=== PATIENT | female | born 1940 | race Two or more races ===

== ENCOUNTER 2024-06-01 09:08 | Inpatient (IN) | payer OTHER, MEDICAID ==
[~2024-06-01] VITALS: Ht 157.5 cm; Wt 125.0 kg
--- NOTE | 2024-06-01 09:31 | ECG ---
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
--- NOTE | 2024-06-01 09:38 | ED.PDOC ---
Altered Mental Status HPI Comments 84 year old female brought in by EMS presents to the ED with a chief complaint of hypoglycemia onset today (06/01/24). Per EMS, patient was found weak, not able to move, not responding properly, 911 was called. Upon EMS arrival patient's BS was 40, D10 was given, BS improved to 62. Patient was able to be response. Upon ED arrival patient states she is currently experiencing shortness of breath and noticed LT arm is shaking. Upon ED arrival BS was 64. PMHx DM. Denies chest pain, nausea, vomiting, diarrhea, abdominal pain, dizziness, headache. No other symptoms or modifying factors present at this time. Chief Complaint: Hypoglycemia Time Seen by MD: 09:15 Primary Care Provider: UNKNOWN Reviewed Notes: Medications, Allergies Allergies: Coded Allergies: NO KNOWN ALLERGIES (Unverified , 06/01/24) Information Source: Patient, Emergency Med Personnel Mode of Arrival: EMS Severity: Moderate Timing: Hours Duration: Since onset Prehospital treatment: Other (D10) Quality: Decreased Alertness, Change in Behavior Recent: None History of: Diabetes, Hypoglycemia Past Medical History PAST MEDICAL HISTORY: DM Surgical History: Denies all surgeries WHARF OPERATOR History: No Pertinent WHARF OPERATOR History Family History Family History: Reviewed,noncontributory to illness, No family hx of Cancer, No family hx of DM, No family hx of Heart aria, No family hx of HTN, No family hx ofKidney aria, No family hx of Liver aria, No family hx of Lung aria, No family hx of Stroke Social History Smoker: Non-Smoker Alcohol: Denies ETOH Use Drugs: Denies Drug Use Lives In: Home Constitutional: reports: weakness; denies: chills, diaphoresis, fatigue, fever, malaise, sweats, others EENTM: denies: blurred vision, double vision, ear bleeding, ear discharge, ear drainage, ear pain, ear ringing, eye pain, eye redness, hearing loss, mouth pain, mouth swelling, nasal discharge, nose bleeding, nose congestion, nose pain, photophobia, tearing, throat pain, throat swelling, voice changes, others Respiratory: reports: shortness of breath; denies: cough, hemoptysis, orthopnea, SOB at rest, SOB with excertion, stridor, wheezing, others Cardiovascular: denies: chest pain, dizzy spells, diaphoresis, Dyspnea on exertion, edema, irregular heart beat, left arm pain, lightheadedness, palpitations, PND, syncope, others Gastrointestinal: denies: abdomen distended, abdominal pain, blood streaked bowels, constipated, diarrhea, dysphagia, difficulty swallowing, hematemesis, melena, nausea, poor appetite, poor fluid intake, rectal bleeding, rectal pain, vomiting, others Genitourinary: denies: abnormal vagina bleeding, burning, dyspareunia, dysuria, flank pain, frequency, hematuria, incontinence, pain, , vagina discharge, urgency, others Neurological: reports: tremors, weakness; denies: dizziness, fainting, headache, left sided numbness, left sided weakness, numbness, paresthesia, pre- existing deficit, right sided numbness, right sided weakness, seizure, speech problems, tingling, others Musculoskeletal: denies: back pain, gout, joint pain, joint swelling, muscle pain, muscle stiffness, neck pain, others Integumetry: denies: bruises, change in color, change in hair/nails, dryness, laceration, lesions, lumps, rash, wounds, others Allergic/Immunocompromised: denies: Difficulty Healing, Frequent Infections, Hives, Itching, others Hematologic/Lymphatic: denies: anemia, blood clots, easy bleeding, easy bruising, swollen glands, others Endocrine: denies: excessive hunger, excessive sweating, excessive thirst, excessive urination, flushing, intolerance to cold, intolerance to heat, unexplained weight gain, unexplained weight loss, others Psychiatric: denies: anxiety, bipolar disorder, depression, hopeless, panic disorder, schizophrenia, sleepless, suicidal, others All Other Systems: Reviewed and Negative Physical Exam General Appearance: Moderate Distress, Normal HEENT: Normal ENT Inspection, Pharynx Normal, TMs Normal Neck: Full Range of Motion, Non-Tender, Normal, Normal Inspection Respiratory: Chest Non-Tender, Lungs Clear, No Accessory Muscle Use, No Respiratory Distress, Normal Breath Sounds Cardiovascular: Bradycardia, No Edema, No JVD, No Murmur, No Gallop, Normal Peripheral Pulses Breast Exam: Deferred Gastrointestinal: No Organomegaly, Non Tender, No Pulsatile Mass, Normal Bowel Sounds, Soft Genitalia: Deferred Pelvic: Deferred Rectal: Deferred Extremities: No calf tenderness, Normal capillary refill, Non-tender, No pedal edema Musculoskeletal : Apperance: Normal Neurologic: Alert, grain operator II-XII nml as Tested, No Motor Deficits, Normal Affect, Normal Mood, No Sensory Deficits Cerebellar Function: NOT DONE Reflexes: NOT DONE Skin: Dry, Normal Color, Warm Peripheral Pulses: 3+ Radial (R), 3+ Radial (L) Lymphatic: No Adenopathy Was a procedure done? Was a procedure done?: No Differential Diagnosis (ALOC) Differential Diagnosis: Hypoglycemia, Encephalopathy, Sepsis X-Ray, Labs, Meds, VS Vital Signs Date Time Temp Pulse Resp B/P (MAP) Pulse Ox O2 Delivery O2 Flow Rate FiO2 06/01/24 10:22 Nasal Cannula* 2 28 06/01/24 10:01 44 19 191/70 (110) 98 06/01/24 09:42 91.0 91.0 06/01/24 09:33 50 14 174/53 (93) 91 06/01/24 09:17 43 18 138/84 (102) 98 06/01/24 09:11 46 Lab Test 06/01/24 10:09 Range/Units White Blood Count 6.7 4.4-10.8 10^3/uL Red Blood Count 4.29 4.0-5.20 10^6/uL Hemoglobin 12.5 12.2-16.2 g/dL Hematocrit 39.5 36.0-46.0 % Mean Corpuscular Volume 92.2 80.0-100.0 fL Mean Corpuscular Hemoglobin 29.1 28.0-32.0 pg Mean Corpuscular Hemoglobin Concent 31.5 L 32.0-36.0 g/dL Red Cell Distribution Width 15.5 H 11.8-14.3 % Platelet Count 221 140-450 10^3/uL Mean Platelet Volume 7.2 6.9-10.8 fL Neutrophils (%) (Auto) 87.7 H 37.0-80.0 % Lymphocytes (%) (Auto) 7.4 L 10.0-50.0 % Monocytes (%) (Auto) 4.3 0.0-12.0 % Eosinophils (%) (Auto) 0.3 0.0-7.0 % Basophils (%) (Auto) 0.3 0.0-2.0 % Neutrophils # (Auto) 5.9 1.6-8.6 10 ^3/uL Lymphocytes # (Auto) 0.5 0.4-5.4 10 ^3/uL Monocytes # (Auto) 0.3 0-1.3 10 ^3/uL Eosinophils # (Auto) 0 0-0.8 10 ^3/uL Basophils # (Auto) 0 0-0.2 10 ^3/uL Nucleated Red Blood Cells 0.0 % Sodium Level 142 136-145 mmol/L Potassium Level 4.4 3.5-5.1 mmol/L Chloride Level 109 H 98-107 mmol/L Carbon Dioxide Level 22 20-31 mmol/L Anion Gap 11 5-15 Blood Urea Nitrogen 34 H 9-23 mg/dL Creatinine 1.93 H 0.550-1.02 mg/dL Glomerular Filtration Rate Calc 25 >90 mL/min BUN/Creatinine Ratio 17.6 10.0-20.0 Serum Glucose 108 H 74-106 mg/dL Calcium Level 9.4 8.7-10.4 mg/dL Troponin I High Sensitivity 13 </=34 ng/L Current Medications Medications (Trade) Dose Ordered Sig/Erika Route Start Time Stop Time Status Last Admin Dextrose 1,000 ml @ 75 mls/hr [id number] ONCE IV 06/01/24 09:30 06/01/24 22:49 06/01/24 10:02 [place] [id number] Ph: [phone] DIAGNOSTIC IMAGING Diagnostic Imaging Report : [id number] Signed PATIENT: ORLANDO HUBBARD ACCT: [id number] UNIT: [id number] : 1940 LOC: ER ROOM / BED: / AGE / SEX: 84 / F ADM STATUS: REG ER SERVICE 1 ORDERING PHYSICIAN: EJ JONES MD PROCEDURE(s): CXRP - CHEST PORTABLE REASON: sob ORDER NUMBER(s): [id number], ACCESSION NUMBER(s): [id number] CHEST RADIOGRAPH Indication: sob Technique: Single frontal view of the chest was obtained Comparison: None FINDINGS: Lines and Tubes: None Lungs: Pulmonary vascular congestion. Pleura: No effusion. No pneumothorax. Cardiomediastinal contours: Cardiomegaly. Bones: No acute osseous abnormality. Bilateral AC joint space narrowing and osteophyte formation. IMPRESSION: 1. Pulmonary vascular congestion. ATED BY: MERRICK COSTELLO MD DICTATED DATE/TIME: 06/01/24 100 SIGNED BY: MERRICK COSTELLO MD SIGNED DATE/TIME: 06/01/24 100 CC: Patient slow to respond. Better after giving glucose. Chest x-ray does show congestion. Vitals stable. EKG does show chronic changes. Blood pressure elevated. She is bradycardic pain Possibly from atenolol. Placed on oxygen. Placed on D10. Waiting for family. Continue cardiac monitoring. Time of 1ST Reevaluation: 09:45 Reevaluation 1ST: Unchanged Patient Education/Counseling: Diagnosis, Treatment, Prognosis Family Education/Counseling: No Family Present Additional Information The following tests were ordered, and results were reviewed by me: EKG, TROP, CBC, XY CHEST, UA, BMP, URINE BACTERIAL CULTURE Additional Information was gathered from interviewing the following independent historians: EMS I reviewed and agreed with the following test results read by other providers: XY CHEST I discussed treatment and results with medical personnel and: Patient Comprehensive systems review obtained and negative except for what is stated in the HPI. Departure 1 Departure Time of Disposition: 11:57 Impression: Primary Impression: Metabolic encephalopathy Additional Impressions: Hypertensive urgency Hypoglycemia Disposition: ADMITTED INPATIENT Admit to: Med Surg Condition: Guarded Critical Care Note Critical Care Time?: Yes (90 min-critical care time only) Critical care comment: Started glucose Stability Stability form required: No Heart Score Heart Score: Heart Score Response (Comments) Value History Slightly Suspicious 0 EKG Normal 0 Age >65 2 Risk Factors >3 or Hx ASHD 2 Troponin Normal limit 0 Total 4 I personally scribed for EJ JONES MD ([email or web address]) on 06/01/24 at 09:38. Electronically submitted by Josefa Renee ([email or web address]). I personally scribed for EJ JONES MD ([email or web address]) on 06/01/24 at 10:37. Electronically submitted by Josefa Renee ([email or web address]). EJ JONES MD Jun 01, 2024 09:38
[2024-06-01] MEDS: DEXTROSE 10% 1,000 ML IV ONE ×3 (10:02→18:23)
--- NOTE | 2024-06-01 10:10 | DVH ---
CHEST RADIOGRAPH Indication: sob Technique: Single frontal view of the chest was obtained Comparison: None FINDINGS: Lines and Tubes: None Lungs: Pulmonary vascular congestion. Pleura: No effusion. No pneumothorax. Cardiomediastinal contours: Cardiomegaly. Bones: No acute osseous abnormality. Bilateral AC joint space narrowing and osteophyte formation. IMPRESSION: 1. Pulmonary vascular congestion.
[2024-06-01 10:20] LABS: Basophils # (auto) 0 10 ^3/uL (0-0.2); Basophils % (auto) 0.3 % (0.0-2.0); Eosinophils # (auto) 0 10 ^3/uL (0-0.8); Eosinophils % (auto) 0.3 % (0.0-7.0); Hematocrit 39.5 % (36.0-46.0); Hemoglobin 12.5 g/dL (12.2-16.2); Lymphocytes # (auto) 0.5 10 ^3/uL (0.4-5.4); Lymphocytes % (auto) 7.4 % (10.0-50.0); Mean Corpuscular Hemoglobin 29.1 pg (28.0-32.0); Mean Corpuscular Hgb Conc. 31.5 g/dL (32.0-36.0); Mean Corpuscular Volume 92.2 fL (80.0-100.0); Monocytes # (auto) 0.3 10 ^3/uL (0-1.3); Monocytes % (auto) 4.3 % (0.0-12.0); Neutrophils # (auto) 5.9 10 ^3/uL (1.6-8.6); Neutrophils % (auto) 87.7 % (37.0-80.0); Platelet Count (auto) 221 10^3/uL (140-450); Red Blood Cells 4.29 10^6/uL (4.0-5.20); Red Cell Distribution Width 15.5 % (11.8-14.3); White Blood Cell 6.7 10^3/uL (4.4-10.8)
[2024-06-01 10:43] LABS: Anion Gap 11 (5-15); Carbon Dioxide 22 mmol/L (20-31); Potassium 4.4 mmol/L (3.5-5.1); Sodium 142 mmol/L (136-145)
[2024-06-01 10:44] LABS: Calcium 9.4 mg/dL (8.7-10.4); Chloride 109 mmol/L (98-107)
[2024-06-01 10:49] LABS: BUN/Creatinine Ratio 17.6 (10.0-20.0)
[2024-06-01 10:59] LABS: Blood Urea Nitrogen 34 mg/dL (9-23); Glucose 108 mg/dL (74-106)
[2024-06-01 14:13] LABS: Urine Bacteria FEW /hpf (None Seen); Urine Blood TRACE /uL (Negative); Urine Clarity Clear (Clear); Urine Color Light-Yellow (Yellow); Urine Protein, UAD TRACE (Negative); Urine Specific Gravity 1.009 (1.001-1.035); Urine Squamous Epithelial Cell FEW /hpf (<5); Urine Urobilinogen Normal (Negative); Urine WBC 19 /HPF (0-5)
[2024-06-01] MEDS ORDERED: ATEN50TA PO (14:29)
[2024-06-01] MEDS ORDERED: OXYB5TAB14 PO (14:29)
[2024-06-01] MEDS ORDERED: DOCUSATE SOD 100 MG CAP PO PRN (14:30)
[2024-06-01] MEDS ORDERED: DEXTROSE (50%) 50ML SYRG IV PRN ×3 (14:30→22:00)
[2024-06-01] MEDS ORDERED: ONDANSETRON HCL 4 MG/2 ML VIAL IV PRN (14:30)
[2024-06-01] MEDS ORDERED: HYDROcodone-ACET 5/325MG TAB PO PRN (14:30)
--- NOTE | 2024-06-01 14:55 | DVHHP2 ---
History of Present Illness Reason for Visit: Hypoglycemia History of Present Illness Humaira Coronado is an 84-year-old female with past medical history of diabetes, hypertension, neuropathy, and over active bladder, who was brought in for hypoglycemia. Patient states she lives alone. She has 2 caregivers that check on her twice a day, and her daughter lives close. According to ER, the caregiver found her this morning weak and not responding well. When EMS arrived her blood sugar was in the 40's. She was given dextrose and became more responsive. Once in the ER her blood sugar was in the 60's and she was hypothermic. D10 was started and a bear hugger blanket was placed. 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 Endocrine: Diabetes Past Surgical History: Appendectomy, Hysterectomy, Other (back, eye, and bladder), Total knee replacement (bilateral) Smoke: No ALCOHOL: none Drugs: None Lives: Alone Domestic Violence: Neg Review of Systems Constitutional: No: Fever, Chills, Sweats, Weakness, Malaise, Other Eyes: No: Pain, Vision change, Conjunctivae inflammation, Eyelid inflammation, Other, Redness ENT: No: Ear pain, Ear discharge, Nose pain, Nose discharge, Nose congestion, Mouth pain, Mouth swelling, Throat pain, Throat swelling, Other Respiratory: No: Cough, Dry, Shortness of breath, SOB with excertion, Wheezing, Hemoptysis, Pleuritic Pain, Sputum, Wheezing, Other Cardiovascular: No: Chest Pain, Palpitations, Orthopnea, Paroxysmal Noc. Dyspnea, Edema, Lt Headedness, Other Gastrointestinal: No: Nausea, Vomiting, Abdominal Pain, Diarrhea, Constipation, Melena, Hematochezia, Other Genitourinary: No Dysuria, No Frequency, No Incontinence, No Hematuria, No Retention, No Other Musculoskeletal: No: other, neck pain, shoulder pain, arm pain, back pain, hand pain, leg pain, foot pain Skin: No: Rash, Lesions, Jaundice, Bruising, Other Neurological: Weakness, Incoordination, Confusion, Other (Hypoglycemic); No: Numbness, Change in speech, Seizures Allergies: Coded Allergies: NO KNOWN ALLERGIES (Unverified , 06/01/24) Exam Vital Signs Vital Signs Date Time Temp Pulse Resp B/P (MAP) Pulse Ox O2 Delivery O2 Flow Rate FiO2 06/01/24 12:01 97.0 48 15 169/50 (89) 99 97.0 06/01/24 10:22 Nasal Cannula* 2 28 General Appearance: Alert, Oriented X3, Cooperative, mild distress HEENT: Atraumatic, PERRLA Respiratory: Clear to auscultation, Normal air movement Cardiovascular: Normal S1, Normal S2, No murmurs, Other (SB) Abdominal: Normal bowel sounds, Soft, No tenderness, No hepatospenomegaly Extremities: No clubbing, No cyanosis, No edema, Normal pulses, No tenderness/swelling Skin: No rashes, No breakdown, No significant lesion Neuro: Normal gait, Normal speech, Strength at 5/5 X4 ext Psych/Mental Status: Mental status NL, Mood NL Labs/Xrays Labs Test 06/01/24 13:45 06/01/24 12:32 06/01/24 10:09 Range/Units Urine Color Light-yellow Yellow Urine Clarity Clear Clear Urine pH 6.0 5.0-9.0 Urine Specific [place] 1.009 1.001-1.035 Urine Protein Trace H Negative Urine Ketones Negative Negative Urine Blood Trace H Negative /uL Urine Nitrite 2+ H Negative Urine Bilirubin Negative Negative Urine Urobilinogen Normal Negative mg/dL Urine Leukocyte Esterase 2+ Negative /uL Urine RBC 1 0 - 4 /hpf Urine Microscopic WBC 19 H 0-5 /HPF Urine Squamous Epithelial Cells Few <5 /hpf Urine Bacteria Few H None Seen /hpf Urine Glucose Normal Normal mg/dL POC Glucose 156 H 70-106 mg/dl White Blood Count 6.7 4.4-10.8 10^3/uL Red Blood Count 4.29 4.0-5.20 10^6/uL Hemoglobin 12.5 12.2-16.2 g/dL Hematocrit 39.5 36.0-46.0 % Mean Corpuscular Volume 92.2 80.0-100.0 fL Mean Corpuscular Hemoglobin 29.1 28.0-32.0 pg Mean Corpuscular Hemoglobin Concent 31.5 L 32.0-36.0 g/dL Red Cell Distribution Width 15.5 H 11.8-14.3 % Platelet Count 221 140-450 10^3/uL Mean Platelet Volume 7.2 6.9-10.8 fL Neutrophils (%) (Auto) 87.7 H 37.0-80.0 % Lymphocytes (%) (Auto) 7.4 L 10.0-50.0 % Monocytes (%) (Auto) 4.3 0.0-12.0 % Eosinophils (%) (Auto) 0.3 0.0-7.0 % Basophils (%) (Auto) 0.3 0.0-2.0 % Neutrophils # (Auto) 5.9 1.6-8.6 10 ^3/uL Lymphocytes # (Auto) 0.5 0.4-5.4 10 ^3/uL Monocytes # (Auto) 0.3 0-1.3 10 ^3/uL Eosinophils # (Auto) 0 0-0.8 10 ^3/uL Basophils # (Auto) 0 0-0.2 10 ^3/uL Nucleated Red Blood Cells 0.0 % Sodium Level 142 136-145 mmol/L Potassium Level 4.4 3.5-5.1 mmol/L Chloride Level 109 H 98-107 mmol/L Carbon Dioxide Level 22 20-31 mmol/L Anion Gap 11 5-15 Blood Urea Nitrogen 34 H 9-23 mg/dL Creatinine 1.93 H 0.550-1.02 mg/dL Glomerular Filtration Rate Calc 25 >90 mL/min BUN/Creatinine Ratio 17.6 10.0-20.0 Serum Glucose 108 H 74-106 mg/dL Calcium Level 9.4 8.7-10.4 mg/dL Troponin I High Sensitivity 13 </=34 ng/L CHEST RADIOGRAPH FINDINGS: Lines and Tubes: None Lungs: Pulmonary vascular congestion. Pleura: No effusion. No pneumothorax. Cardiomediastinal contours: Cardiomegaly. Bones: No acute osseous abnormality. Bilateral AC joint space narrowing and osteophyte formation. IMPRESSION: 1. Pulmonary vascular congestion. 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 Procedure Category Date Status Time Admit ADMIT 06/01/24 Verified 14:22 Code Status CODE 06/01/24 Verified 14:22 2 Gm Sodium Diet DIET 06/01/24 Verified Dinner Sodium Chloride Lock PHA 06/01/24 Verified (Saline Lock Ns) 22:00 Hydrocodone-Acet PHA 06/01/24 Verified 5/325mg Tab ([place] 14:30 Ondansetron Hcl PHA 06/01/24 Verified (Zofran) 14:30 Docusate Sodium PHA 06/01/24 Verified Capsule (Colace 14:30 Complete Blood Count LAB 06/02/24 Verified 04:00 Comprehensive LAB 06/02/24 Verified Metabolic Panel 04:00 Condition: Serious ELVIN 06/01/24 Verified 14:22 Acetaminophen Tablet PHA 06/01/24 Verified (Tylenol Tablet) 14:30 Glucose Blood PHA 06/01/24 Verified (Accu-Chek Comfort 17:00 Bedtime Insulin Scale PHA 06/01/24 Verified 22:00 Moderate Insulin Ss PHA 06/01/24 Verified 17:00 Dextrose 50% Syringe PHA 06/01/24 Verified 14:30 Insulin Lantus PHA 06/02/24 Verified (Glargine) (Lantus) 07:00 Date of Service: Jun 01, 2024 Billing Provider: DRAKE DIXON Common Visit Codes: [id number] INP/OBS CARE (MOD) DRAKE DIXON Jun 01, 2024 14:55
[2024-06-01] MEDS: ACCU-CHEK COMFORT CURVE STRIP VI SCH ×2 (15:50→22:00)
[2024-06-01 17:00] VITALS: BP 174/46; PULSE 60; RESP 18; TEMP 98.1; O2SAT 100
[2024-06-01] MEDS ORDERED: ACCU-CHEK COMFORT CURVE STRIP VI SCH (17:00)
[2024-06-01 17:08] VITALS: BP 174/46; PULSE 60; RESP 18; TEMP 98.1; O2SAT 100
[2024-06-01] MEDS: InsuLIN REG 1unit/0.01ml Soln (100units/ml) SC SCH ×2 (18:00→22:38)
[2024-06-01] MEDS ORDERED: NIFE90TA75 PO (18:06)
[2024-06-01] MEDS ORDERED: HYDR50TA47 PO (18:06)
[2024-06-01] MEDS: NIFEdipine ER 30 MG TAB PO ONE (18:30)
[2024-06-01] MEDS: hydrALAZINE HCL 25 MG TAB PO ONE (18:31)
[2024-06-01 20:00] VITALS: PULSE 56; RESP 20; O2SAT 98
[2024-06-01 21:00] VITALS: BP 123/41; PULSE 56; RESP 20; TEMP 98.1; O2SAT 98
[2024-06-01] MEDS ORDERED: InsuLIN REG 1unit/0.01ml Soln (100units/ml) SC SCH (22:00)
[2024-06-01] MEDS: hydrALAZINE HCL 25 MG TAB PO SCH (22:00)
[2024-06-01] MEDS: SODIUM CHLOR 0.9% PF (SALINE LOCK) 10ML VIAL/SYR IV SCH (22:31)
[2024-06-02] VITALS (7 sets, daily range): BP systolic 103–160; BP diastolic 32–65; PULSE 57–96; RESP 15–20; TEMP 97.8–99; O2SAT 90–98
[2024-06-02 06:00] LABS: Basophils # (auto) 0 10 ^3/uL (0-0.2); Basophils % (auto) 0.5 % (0.0-2.0); Eosinophils # (auto) 0.2 10 ^3/uL (0-0.8); Eosinophils % (auto) 2.1 % (0.0-7.0); Hematocrit 33.2 % (36.0-46.0); Hemoglobin 10.5 g/dL (12.2-16.2); Lymphocytes % (auto) 13.7 % (10.0-50.0); Mean Corpuscular Hemoglobin 28.8 pg (28.0-32.0); Mean Corpuscular Hgb Conc. 31.5 g/dL (32.0-36.0); Mean Corpuscular Volume 91.4 fL (80.0-100.0); Monocytes # (auto) 0.6 10 ^3/uL (0-1.3); Monocytes % (auto) 7.6 % (0.0-12.0); Neutrophils # (auto) 5.6 10 ^3/uL (1.6-8.6); Neutrophils % (auto) 76.1 % (37.0-80.0); Platelet Count (auto) 205 10^3/uL (140-450); Red Blood Cells 3.63 10^6/uL (4.0-5.20); Red Cell Distribution Width 15.5 % (11.8-14.3); White Blood Cell 7.3 10^3/uL (4.4-10.8)
[2024-06-02 06:34] LABS: Alanine Aminotransferase 12 U/L (7-40); Albumin 3.6 g/dL (3.2-4.8); Alkaline Phosphatase 90 U/L (46-116); Anion Gap 10 (5-15); Aspartate Aminotransferase 15 U/L (13-40); BUN/Creatinine Ratio 20.9 (10.0-20.0); Calcium 9.1 mg/dL (8.7-10.4); Carbon Dioxide 24 mmol/L (20-31); Glucose 84 mg/dL (74-106); Potassium 4.3 mmol/L (3.5-5.1); Sodium 143 mmol/L (136-145)
[2024-06-02 06:35] LABS: Bilirubin, Total 0.4 mg/dL (0.2-1.0)
[2024-06-02] MEDS: INSULIN LANTUS (GLARGINE) 1 /0.01ml (100units/ml) SC SCH (06:38)
[2024-06-02 06:39] LABS: Blood Urea Nitrogen 39 mg/dL (9-23); Chloride 109 mmol/L (98-107)
[2024-06-02] MEDS ORDERED: cefTRIAXone 1GM/50ML D5W 50 ML IV SCH (09:00)
[2024-06-02] MEDS: ACETAMINOPHEN 325 MG TAB PO PRN (09:17)
[2024-06-02] MEDS: OXYBUTYNIN CHL 5 MG TAB PO SCH (09:18)
[2024-06-02] MEDS: NIFEdipine ER 30 MG TAB PO SCH (09:19)
--- NOTE | 2024-06-02 10:00 | DVHPNRES ---
Progress Note Date Seen: Jun 02, 2024 Resident Creating Document: CURTIS ALLEN RESIDENT Has the PT tested + for MRSA If YES, has PT been informed?: No Medical Necessity Reason Pt with a Central, PICC or Fol: No The following are medically ne: Crystal Catheter Reason for crystal catheter: Strict I&O Subjective Review of Systems 84-year-old female patient with past medical history of diabetes, hypertension, peripheral neuropathy, neurogenic bladder, who was brought to the emergency department with a chief complaint of altered level of consciousness likely cause by an episode of hypoglycemia, patient was found to be disoriented, and blood glucose level were found to be in the 40s, she said she forgot to eat after taking the insulin. Today patient was examined at bedside she reports improvement, she said she forgot to eat after taking the insulin. Was given dextrose, she was given medication for the neuropathic pain, gabapentin 300 mg p.o. b.i.d. and also ceftriaxone for a positive urinalysis, we will continue monitoring the blood pressure, she is currently on losartan 25 mg p.o. daily and nifedipine 90. Lower extremity DVT ultrasound was negative. Review of systems: Constitutional: No: Fever, Chills, Sweats, Weakness, Malaise, Other Eyes: No: Pain, Vision change, Conjunctivae inflammation, Eyelid inflammation, Other, Redness ENT: No: Ear pain, Ear discharge, Nose pain, Nose discharge, Nose congestion, Mouth pain, Mouth swelling, Throat pain, Throat swelling, Other Respiratory: No Wheezing, Hemoptysis, Pleuritic Pain, Sputum, Wheezing, Other Cardiovascular: No: Chest Pain, Palpitations, Orthopnea, Paroxysmal Noc. Dyspnea, Edema Gastrointestinal: No: Nausea, Vomiting, Abdominal Pain, Diarrhea, Constipation, Melena, Hematochezia, Other Musculoskeletal: No: other, neck pain, shoulder pain, arm pain, back pain, hand pain, leg pain, foot pain Neurological:; No: Weakness, Numbness, Incoordination, Change in speech, Confusion, Seizures Patient reports: Feels better Changes from previous H/P or p: Changes Objective vital signs Vital Sign Date Time Temp Pulse Resp B/P (MAP) Pulse Ox O2 Delivery O2 Flow Rate FiO2 06/02/24 09:19 160/63 06/02/24 05:00 98.1 62 20 96 98.1 06/01/24 20:00 Nasal Cannula* 2 28 Total Intake and Output 06/01/24 06/01/24 06/02/24 15:00 23:00 07:00 Intake Total 300 ml 280 ml 0 ml Output Total 1600 ml Balance 300 ml 280 ml -1600 ml medications Current Medications Medications Dose Ordered Sig/Erika Route Start Time Stop Time Status Last Admin Dose Admin Sodium Chloride 10 ml Q8HR IV 06/01/24 22:00 06/02/24 06:36 10 ML Acetaminophen/ Hydrocodone Bitart 1 tab Q4HP PRN PO 06/01/24 14:30 Ondansetron HCl 4 mg Q4HP PRN IV 06/01/24 14:30 Docusate Sodium 100 mg BIDPRN PRN PO 06/01/24 14:30 Acetaminophen 650 mg Q6HP PRN PO 06/01/24 14:30 06/02/24 09:17 650 MG Diagnostic Test (Pha) 1 strip ACHS 06/01/24 17:00 Cancel Insulin Glargine 10 units QAM SC 06/02/24 07:00 Oxybutynin Chloride 5 mg DAILY PO 06/02/24 10:00 06/02/24 09:18 5 MG Hydralazine HCl 50 mg TID PO 06/01/24 22:00 Nifedipine 90 mg DAILY PO 06/02/24 10:00 06/02/24 09:19 90 MG Diagnostic Test (Pha) 1 strip ACHS 06/01/24 22:00 06/02/24 06:38 1 STRIP Insulin Human Regular ACHS SC 06/01/24 22:00 06/01/24 22:38 2 UNITS Dextrose 50 ml UD PRN IV 06/01/24 22:00 Ceftriaxone Sodium 50 ml @ 100 mls/hr DAILY@09 IV 06/03/24 09:00 Gabapentin 300 mg BID PO 06/02/24 10:00 UNV Examination Examination General Appearance: Alert, Oriented X3, Cooperative, No acute distress Respiratory: Clear to auscultation, Normal air movement Cardiovascular: Regular rate, Normal S1, Normal S2 Abdominal: Normal bowel sounds Extremities: No cyanosis, No edema, Normal pulses, No tenderness/swelling Skin: No rashes, No breakdown Neuro: Normal gait, Normal speech, Strength at 5/5 X4 ext, Normal tone, Sensation intact, Cranial nerves 3-12 NL, Reflexes 2+ laboratory and microbiology Laboratory Tests 06/02/24 05:24 Test 06/02/24 05:24 Range/Units Serum Glucose 84 74-106 mg/dL Microbiology Date/Time Source Procedure Growth Status 06/01/24 13:45 Urine - [place] Urine Culture - Preliminary Resulted Problem List/Assessment/Plan Problem List/Assessment/Plan Acute metabolic encephalopathy secondary to hypoglycemia Morbid obesity Hypertension Asymptomatic bradycardia Neurogenic bladder secondary to type 2 diabetes Plan: Admit to med surge IV ceftriaxone Gabapentin 300 b.i.d. p.o. Insulin protocol Oxybutynin next Monitoring output Continue gentle diuresis Resume home medication Case discussed with Dr. Potts Goals of care discussed with the patient for 28 minutes Code status: Full code Plan discussed with: Patient My Orders My Orders Orders - CURTIS ALLEN Procedure Category Date Status Time Vitamin B12 LAB 06/02/24 In Process 07:52 Vitamin D, 25-Hydroxy LAB 06/02/24 In Process 07:52 Thyroid Stimulating LAB 06/02/24 In Process Hormone 07:52 Hemoglobin A1c LAB 06/02/24 In Process 07:56 Lipid Panel LAB 06/02/24 In Process 07:56 Ceftriaxone 1gm/50ml PHA 06/03/24 In Process D5w (Rocephin) 09:00 Bilat Lower Dvt US 06/02/24 Logged 09:51 Pt Request For Service PT 06/02/24 Logged 09:51 Gabapentin Capsule PHA 06/02/24 In Process (Neurontin Capsule) 10:00 Gabapentin Capsule PHA 06/02/24 In Process (Neurontin Capsule) 22:00 Losartan Tablet PHA 06/02/24 Logged (Cozaar Tablet) 10:00 Drug Screen LAB 06/02/24 Logged 09:56 Covid19 Antigen [place]ala LAB 06/02/24 Logged Rapid Influenza A&B LAB 06/02/24 Logged 09:56 Date of Service: Jun 02, 2024 Billing Provider: BO POTTS MD Common Visit Codes: [id number] INP/OBS CARE(HIGH) CURTIS ALLEN RESIDENT Jun 02, 2024 10:00 BO POTTS MD Jun 04, 2024 13:48
[2024-06-02 10:14] LABS: Triglycerides 130 mg/dL (< 150)
[2024-06-02 10:15] LABS: LDL Cholesterol 73 mg/dL (< 100)
[2024-06-02 10:16] LABS: Cholesterol 135 mg/dL (< 200)
[2024-06-02 10:27] LABS: HDL Cholesterol 38 mg/dL (40-59)
[2024-06-02] MEDS: LOSARTAN POTASSIUM 25 MG TAB PO ONE (10:28)
[2024-06-02] MEDS: cefTRIAXone 1GM/50ML D5W 50 ML IV ONE (10:28)
[2024-06-02] MEDS: GABAPENTIN 300 MG CAP PO ONE (10:28)
--- NOTE | 2024-06-02 10:48 | DVH ---
BILATERAL LOWER EXTREMITY VENOUS DOPPLER CLINICAL HISTORY: rule out dvt Technique: Duplex Doppler evaluation of the deep venous systems of both lower extremities from the co mmon femoral veins to the popliteal veins including color Doppler and spectral/pulsed waveform analys is was performed. COMPARISON: None FINDINGS: The right and left common femoral, superficial femoral, popliteal, posterior tibial veins and trifur cations appear patent with normal augmentation, phasicity, compressibility and color-flow. IMPRESSION: 1. There is no sonographic evidence for DVT in the lower extremities. HS:Y
[2024-06-02 11:41] LABS: Benzodiazephine Screen, Urine Neg (NEGATIVE)
[2024-06-02 11:50] LABS: Amphetamine Screen, Urine Neg (NEGATIVE); Barbiturate Scree,Urine Neg (NEGATIVE); Cannabinoid Screen, Urine Neg (NEGATIVE); Cocaine Screen, Urine Neg (NEGATIVE); Opiate Scree,Urine Neg (NEGATIVE); Phencyclidine Screen, Urine Neg (NEGATIVE)
[2024-06-02 12:50] LABS: COVID19 ANTIGEN SOFIA FIA NEGATIVE (NEGATIVE); Rapid Influenza A Negative (Negative); Rapid Influenza B Negative (Negative)
[2024-06-02] MEDS: GABAPENTIN 300 MG CAP PO SCH (22:43)
[2024-06-03] VITALS (7 sets, daily range): BP systolic 119–138; BP diastolic 39–50; PULSE 66–76; RESP 17–18; TEMP 97.4–98.2; O2SAT 88–98
[2024-06-03 07:22] LABS: Basophils # (auto) 0.1 10 ^3/uL (0-0.2); Basophils % (auto) 0.8 % (0.0-2.0); Eosinophils # (auto) 0.2 10 ^3/uL (0-0.8); Eosinophils % (auto) 2.1 % (0.0-7.0); Hematocrit 33.9 % (36.0-46.0); Hemoglobin 10.9 g/dL (12.2-16.2); Lymphocytes # (auto) 1.4 10 ^3/uL (0.4-5.4); Lymphocytes % (auto) 18.1 % (10.0-50.0); Mean Corpuscular Hemoglobin 29.2 pg (28.0-32.0); Mean Corpuscular Hgb Conc. 32.2 g/dL (32.0-36.0); Mean Corpuscular Volume 90.7 fL (80.0-100.0); Monocytes # (auto) 0.6 10 ^3/uL (0-1.3); Monocytes % (auto) 8.2 % (0.0-12.0); Neutrophils # (auto) 5.4 10 ^3/uL (1.6-8.6); Neutrophils % (auto) 70.8 % (37.0-80.0); Platelet Count (auto) 198 10^3/uL (140-450); Red Blood Cells 3.73 10^6/uL (4.0-5.20); Red Cell Distribution Width 15.3 % (11.8-14.3); White Blood Cell 7.6 10^3/uL (4.4-10.8)
[2024-06-03 07:29] LABS: Anion Gap 10 (5-15); Carbon Dioxide 24 mmol/L (20-31); Potassium 4.7 mmol/L (3.5-5.1); Sodium 141 mmol/L (136-145)
[2024-06-03 07:30] LABS: Calcium 9.2 mg/dL (8.7-10.4)
[2024-06-03 07:37] LABS: Chloride 107 mmol/L (98-107); Glucose 163 mg/dL (74-106)
[2024-06-03 07:57] LABS: BUN/Creatinine Ratio 22.1 (10.0-20.0)
[2024-06-03 08:04] LABS: Blood Urea Nitrogen 43 mg/dL (9-23)
[2024-06-03] MEDS: cefTRIAXone 1GM/50ML D5W 50 ML IV SCH (10:08)
--- NOTE | 2024-06-03 21:36 | DVHPNRES ---
Progress Note Date Seen: Jun 03, 2024 Resident Creating Document: CURTIS ALLEN RESIDENT Has the PT tested + for MRSA If YES, has PT been informed?: No Medical Necessity Reason Pt with a Central, PICC or Fol: No The following are medically ne: Crystal Catheter Reason for crystal catheter: Strict I&O Subjective Review of Systems Patient examined at bedside, she reports moderate shortness of breath on light physical activity, minute walk test was performed she desaturates until 85% after 2-3 min. ABG pending for tomorrow. Patient reports: No new complaints Changes from previous H/P or p: No Changes Objective vital signs Vital Sign Date Time Temp Pulse Resp B/P (MAP) Pulse Ox O2 Delivery O2 Flow Rate FiO2 06/03/24 21:25 125/41 06/03/24 20:00 Nasal Cannula* 2 28 06/03/24 17:30 98.0 66 18 88 98.0 Total Intake and Output 06/02/24 06/02/24 06/03/24 15:00 23:00 07:00 Intake Total 50 ml 1840 ml 440 ml Output Total 750 ml Balance 50 ml 1840 ml -310 ml medications Current Medications Medications Dose Ordered Sig/Erika Route Start Time Stop Time Status Last Admin Dose Admin Sodium Chloride 10 ml Q8HR IV 06/01/24 22:00 06/03/24 21:25 10 ML Acetaminophen/ Hydrocodone Bitart 1 tab Q4HP PRN PO 06/01/24 14:30 Ondansetron HCl 4 mg Q4HP PRN IV 06/01/24 14:30 Docusate Sodium 100 mg BIDPRN PRN PO 06/01/24 14:30 Acetaminophen 650 mg Q6HP PRN PO 06/01/24 14:30 06/03/24 10:07 650 MG Diagnostic Test (Pha) 1 strip ACHS 06/01/24 17:00 Cancel Insulin Glargine 10 units QAM SC 06/02/24 07:00 Oxybutynin Chloride 5 mg DAILY PO 06/02/24 10:00 06/03/24 10:04 5 MG Hydralazine HCl 50 mg TID PO 06/01/24 22:00 06/03/24 21:25 50 MG Nifedipine 90 mg DAILY PO 06/02/24 10:00 06/03/24 10:04 90 MG Diagnostic Test (Pha) 1 strip ACHS 06/01/24 22:00 06/03/24 21:26 1 STRIP Insulin Human Regular ACHS SC 06/01/24 22:00 06/03/24 21:26 6 UNITS Dextrose 50 ml UD PRN IV 06/01/24 22:00 Ceftriaxone Sodium 50 ml @ 100 mls/hr DAILY@09 IV 06/03/24 09:00 06/03/24 10:08 100 MLS/HR Gabapentin 300 mg BID PO 06/02/24 22:00 06/03/24 21:26 300 MG laboratory and microbiology Laboratory Tests 06/03/24 06:15 Test 06/03/24 06:15 Range/Units Serum Glucose 163 H 74-106 mg/dL Microbiology Date/Time Source Procedure Growth Status 06/01/24 13:45 Urine - Crystal Port Urine Culture - Final Escherichia coli Complete Problem List/Assessment/Plan Problem List/Assessment/Plan Acute metabolic encephalopathy secondary to hypoglycemia Morbid obesity Hypertension Asymptomatic bradycardia Neurogenic bladder secondary to type 2 diabetes Plan: Admit to [facility] IV ceftriaxone Gabapentin 300 b.i.d. p.o. Insulin protocol Oxybutynin next Monitoring output Continue gentle diuresis Resume home medication ABG 6 minutes walk test Case discussed with Dr. Potts Goals of care discussed with the patient for 28 minutes Code status: Full code Plan discussed with: Patient My Orders My Orders Orders - CURTIS ALLEN Procedure Category Date Status Time Discharge DISCHARGE 06/03/24 Transmitted 11:38 Hi 6-Min Walk Test HDVI 06/03/24 Logged 15:00 Abg W/ Co-Ox RT 06/04/24 Logged 06:00 Date of Service: Jun 03, 2024 Billing Provider: BO POTTS MD Common Visit Codes: [id number] INP/OBS CARE(HIGH) CURTIS ALLEN RESIDENT Jun 03, 2024 21:36 BO POTTS MD Jun 05, 2024 11:12
[2024-06-04] VITALS (7 sets, daily range): BP systolic 134–149; BP diastolic 40–58; PULSE 70–79; RESP 15–18; TEMP 97.5–98.2; O2SAT 91–98
[2024-06-04 06:05] LABS: Basophils # (auto) 0 10 ^3/uL (0-0.2); Basophils % (auto) 0.5 % (0.0-2.0); Eosinophils # (auto) 0.2 10 ^3/uL (0-0.8); Eosinophils % (auto) 2.4 % (0.0-7.0); Hematocrit 33.3 % (36.0-46.0); Hemoglobin 10.8 g/dL (12.2-16.2); Lymphocytes # (auto) 1.1 10 ^3/uL (0.4-5.4); Lymphocytes % (auto) 12.2 % (10.0-50.0); Mean Corpuscular Hemoglobin 29.4 pg (28.0-32.0); Mean Corpuscular Hgb Conc. 32.3 g/dL (32.0-36.0); Mean Corpuscular Volume 90.8 fL (80.0-100.0); Monocytes # (auto) 0.6 10 ^3/uL (0-1.3); Monocytes % (auto) 6.9 % (0.0-12.0); Neutrophils # (auto) 6.7 10 ^3/uL (1.6-8.6); Nucleated Red Blood Cells % 0.1 %; Platelet Count (auto) 193 10^3/uL (140-450); Red Blood Cells 3.66 10^6/uL (4.0-5.20); Red Cell Distribution Width 15.1 % (11.8-14.3); White Blood Cell 8.6 10^3/uL (4.4-10.8)
[2024-06-04 06:06] LABS: Anion Gap 7 (5-15); Calcium 9.3 mg/dL (8.7-10.4); Carbon Dioxide 24 mmol/L (20-31); Potassium 4.9 mmol/L (3.5-5.1); Sodium 138 mmol/L (136-145)
[2024-06-04 06:13] LABS: BUN/Creatinine Ratio 23.1 (10.0-20.0)
[2024-06-04 06:17] LABS: Blood Urea Nitrogen 45 mg/dL (9-23); Chloride 107 mmol/L (98-107); Glucose 214 mg/dL (74-106)
[2024-06-04 11:34] LABS: Base Excess -4.5 mmol/L (-2.0-3.0)
--- NOTE | 2024-06-04 13:43 | DVHPN2 ---
Assessment/Plan Assessment/Plan Progress note 84 F admitted for hypoglycemia. Still have O2 req, PO2 50s on RA. get echo, lasix today. cannot do 6 minute walk test Physical exam AOx3 clear breath sounds s1 s2 RRR abdomen soft nontender Trace LE edema Morbidly obese labs ekg imaging reviewed assessment and plan Acute metabolic encephalopathy secondary to hypoglycemia Morbid obesity Hypertension Asymptomatic bradycardia Neurogenic bladder secondary to type 2 diabetes acute? on chornic hypoxic RF likely OHS/WILMER non hemorrhagic infectious cystitis IV ceftriaxone Gabapentin 300 b.i.d. p.o. Insulin protocol Oxybutynin next Monitoring output Continue gentle diuresis Resume home medication lasix goal net -1L strict io daily weights echo diet cardiac dvt ppx lovenox Plan discussed with: Patient My Orders Orders - BO GOLD MD Procedure Category Date Status Time * Direct Sales Consultant CONS 06/04/24 Transmitted Consult Furosemide Injection PHA 06/05/24 Transmitted (Lasix Injection) 10:00 Echo 2d Mode Cardiac US 06/04/24 Transmitted DOP 13:35 Date of Service: Jun 04, 2024 Billing Provider: BO GOLD MD Common Visit Codes: [id number] INP/OBS CARE(HIGH) BO GOLD MD Jun 04, 2024 13:43
--- NOTE | 2024-06-04 16:02 | DVHSR ---
APPROVED REPORT EXAM: Two-dimensional and M-mode echocardiogram with Doppler and color Doppler. Blood Pressure: 141/58 mmHg INDICATION CESPEDES RISK FACTORS Obesity: Height: 5'2, Weight: 272 DIMENSIONS LVDd4.5 (3.8-5.7cm)LA (2D)3.5 (1.9-4.0cm)Aortic Root3.4 (2.0-3.7cm) LVDs3.0 (2.5-4.0cm)LA (MM) (1.9-4.0cm)Aortic Cusp Exc1.6 (1.5-2.0cm) EF (%) 62.0 (55-70%)Rt. Atrium3.8 (1.9-4.0cm)Asc. Aorta cm IVSd1.2 (0.7-1.1cm)RV (D)4.1 (1.8-2.4cm) PWd0.8 (0.7-1.1cm) Mitral Valve MitralMitral Stenosis E wave1.13m/sMV Mean GR.mmHg A wave0.85m/sMV Peak GR.70mmHg E/A ratio1.32D MVAcm2 DECEL [id number] 1/2 Timems Aortic Valve Aortic ValveAortic Stenosis V11.10m/Felisha Mean GR.6mmHg V21.63m/Felisha Peak GR.11mmHg LVOT Diameter1.8 (1.8-2.4cm)Doppler AVA1.72cm2 Pulmonic Valve V21.09m/s Tricuspid Valve TR Velocity2.45m/s [id number] Other Information Quality : Technically LimitedRhythm : Technically limited study due to body habitus. Conclusion lvef 55-60% by visual estimate rv normal function, RV enlarged atria enlarged bilateral small pericardial effusion noted, no HD compromse, adjacent to RV no severe valve abnormalities noted
[2024-06-05 01:00] VITALS: BP 151/52; PULSE 77; RESP 17; TEMP 97.9; O2SAT 93
[2024-06-05 05:00] VITALS: BP 139/52; PULSE 85; RESP 17; TEMP 98.2; O2SAT 91
[2024-06-05 06:46] LABS: Anion Gap 9 (5-15); Calcium 9.6 mg/dL (8.7-10.4); Carbon Dioxide 22 mmol/L (20-31); Sodium 138 mmol/L (136-145)
[2024-06-05 06:48] LABS: Chloride 107 mmol/L (98-107); Potassium 5.2 mmol/L (3.5-5.1)
[2024-06-05 06:52] LABS: BUN/Creatinine Ratio 24.7 (10.0-20.0); Basophils # (auto) 0 10 ^3/uL (0-0.2); Basophils % (auto) 0.4 % (0.0-2.0); Eosinophils # (auto) 0.2 10 ^3/uL (0-0.8); Eosinophils % (auto) 2.4 % (0.0-7.0); Hematocrit 31.6 % (36.0-46.0); Hemoglobin 10.3 g/dL (12.2-16.2); Lymphocytes # (auto) 0.9 10 ^3/uL (0.4-5.4); Lymphocytes % (auto) 10.3 % (10.0-50.0); Mean Corpuscular Hgb Conc. 32.8 g/dL (32.0-36.0); Mean Corpuscular Volume 91.6 fL (80.0-100.0); Monocytes # (auto) 0.6 10 ^3/uL (0-1.3); Monocytes % (auto) 7.1 % (0.0-12.0); Neutrophils # (auto) 7.2 10 ^3/uL (1.6-8.6); Neutrophils % (auto) 79.8 % (37.0-80.0); Nucleated Red Blood Cells % 0.1 %; Platelet Count (auto) 187 10^3/uL (140-450); Red Blood Cells 3.45 10^6/uL (4.0-5.20); Red Cell Distribution Width 15.4 % (11.8-14.3)
[2024-06-05 06:53] LABS: Blood Urea Nitrogen 44 mg/dL (9-23); Glucose 291 mg/dL (74-106); Magnesium 2.3 mg/dL (1.6-2.6)
[2024-06-05 06:55] LABS: Phosphorus 3.7 mg/dL (2.4-5.1)
[2024-06-05 09:00] VITALS: BP 114/55; PULSE 98; RESP 17; TEMP 98.8; O2SAT 93
[2024-06-05] MEDS: FUROSEMIDE 40 MG/4 ML VIAL IV SCH (09:49)
[2024-06-05] MEDS ORDERED: CEFD300C2 PO (10:46)
[2024-06-05] MEDS ORDERED: FURO1TAB33 PO (10:47)
--- NOTE | 2024-06-05 10:50 | DVHDS2 ---
Discharge Summary Date of Admission Jun 01, 2024 at 14:22 Date of Discharge: Jun 03, 2024 Labs/Diagnostic Data: Laboratory Results Test 06/05/24 06:32 06/05/24 04:43 06/04/24 10:02 06/02/24 11:40 POC Glucose 290 mg/dl (70-106) White Blood Count 9.0 10^3/uL (4.4-10.8) Red Blood Count 3.45 10^6/uL (4.0-5.20) Hemoglobin 10.3 g/dL (12.2-16.2) Hematocrit 31.6 % (36.0-46.0) Mean Corpuscular Volume 91.6 fL (80.0-100.0) Mean Corpuscular Hemoglobin 30.0 pg (28.0-32.0) Mean Corpuscular Hemoglobin Concent 32.8 g/dL (32.0-36.0) Red Cell Distribution Width 15.4 % (11.8-14.3) Platelet Count 187 10^3/uL (140-450) Mean Platelet Volume 7.9 fL (6.9-10.8) Neutrophils (%) (Auto) 79.8 % (37.0-80.0) Lymphocytes (%) (Auto) 10.3 % (10.0-50.0) Monocytes (%) (Auto) 7.1 % (0.0-12.0) Eosinophils (%) (Auto) 2.4 % (0.0-7.0) Basophils (%) (Auto) 0.4 % (0.0-2.0) Neutrophils # (Auto) 7.2 10 ^3/uL (1.6-8.6) Lymphocytes # (Auto) 0.9 10 ^3/uL (0.4-5.4) Monocytes # (Auto) 0.6 10 ^3/uL (0-1.3) Eosinophils # (Auto) 0.2 10 ^3/uL (0-0.8) Basophils # (Auto) 0 10 ^3/uL (0-0.2) Nucleated Red Blood Cells 0.1 % Sodium Level 138 mmol/L (136-145) Potassium Level 5.2 mmol/L (3.5-5.1) Chloride Level 107 mmol/L (98-107) Carbon Dioxide Level 22 mmol/L (20-31) Anion Gap 9 (5-15) Blood Urea Nitrogen 44 mg/dL (9-23) Creatinine 1.78 mg/dL (0.550-1.02) Glomerular Filtration Rate Calc 27 mL/min (>90) BUN/Creatinine Ratio 24.7 (10.0-20.0) Serum Glucose 291 mg/dL (74-106) Calcium Level 9.6 mg/dL (8.7-10.4) Phosphorus Level 3.7 mg/dL (2.4-5.1) Magnesium Level 2.3 mg/dL (1.6-2.6) Blood Gas Specimen Type Arterial Blood Gas Sample Site Left radial Blood Gas Patient Temperature 37.0 Arterial Blood Date Drawn [id number] Arterial Blood pH 7.347 (7.350-7.450) Arterial Blood Partial Pressure CO2 38.6 mmHg (32.0-45.0) Arterial Blood Partial Pressure O2 52.7 mmHg (83.0-108.0) Arterial Blood HCO3 20.7 mmol/L (21.0-28.0) Arterial Blood Oxygen Saturation 85.5 % (94.0-98.0) Arterial Blood Base Excess -4.5 mmol/L (-2.0-3.0) Arterial Blood Oxyhemoglobin 84.6 % (94.0-98.0) Arterial Blood Carboxyhemoglobin 0.5 % (0.5-1.5) Arterial Blood Methemoglobin 0.6 % (0.0-1.5) Isaías Test Yes Blood Gas Total Hemoglobin 12.30 g/dL (12.0-16.0) Blood Gas Modality Room air FiO2 % 21.0 Blood Gas Critical Value Read Back Yes Blood Gas Notified Whom parmjit Duncan Blood Gas Notified Time [id number] Blood Gas Notified By Station Installer And Repairer naveen ayala Influenza Type A Antigen Negative (Negative) Influenza Type B Antigen Negative (Negative) SARS-CoV-2 Antigen (Rapid) Negative (NEGATIVE) Test 06/02/24 05:24 06/01/24 13:45 06/01/24 10:09 Hemoglobin A1c 6.3 % A1C (<5.7) Total Bilirubin 0.4 mg/dL (0.2-1.0) Aspartate Amino Transferase (AST) 15 U/L (13-40) Alanine Aminotransferase (ALT) 12 U/L (7-40) Alkaline Phosphatase 90 U/L (46-116) Total Protein 6.0 g/dL (5.7-8.2) Albumin 3.6 g/dL (3.2-4.8) Triglycerides Level 130 mg/dL (< 150) Cholesterol Level 135 mg/dL (< 200) LDL Cholesterol 73 mg/dL (< 100) HDL Cholesterol 38 mg/dL (40-59) Vitamin B12 Level 465 pg/mL (211-911) Vitamin D 25-Hydroxy 32.1 ng/mL (30.0-100) Thyroid Stimulating Hormone (TSH) 2.23 uIU/mL (0.55-4.78) Urine Color Light-yellow (Yellow) Urine Clarity Clear (Clear) Urine pH 6.0 (5.0-9.0) Urine Specific Goodwin 1.009 (1.001-1.035) Urine Protein Trace (Negative) Urine Ketones Negative (Negative) Urine Blood Trace /uL (Negative) Urine Nitrite 2+ (Negative) Urine Bilirubin Negative (Negative) Urine Urobilinogen Normal mg/dL (Negative) Urine Leukocyte Esterase 2+ /uL (Negative) Urine RBC 1 /hpf (0 - 4) Urine Microscopic WBC 19 /HPF (0-5) Urine Squamous Epithelial Cells Few /hpf (<5) Urine Bacteria Few /hpf (None Seen) Urine Glucose Normal mg/dL (Normal) Urine Opiates Screen Neg (NEGATIVE) Urine Fentanyl Screen Neg (NEGATIVE) Urine Barbiturates Screen Neg (NEGATIVE) Urine Phencyclidine Screen Neg (NEGATIVE) Urine Amphetamines Screen Neg (NEGATIVE) Urine Benzodiazepines Screen Neg (NEGATIVE) Urine Cocaine Screen Neg (NEGATIVE) Urine Cannabinoids Screen Neg (NEGATIVE) Troponin I High Sensitivity 13 ng/L (</=34) Other Laboratory Tests 06/05/24 04:43 Brief Hx & Hospital Course: 84 F admitted for hypoglycemia wich improved. however found to require O2 supp. cannot tolerate 6 min walk test, resting ABG with low PO2. for home O2. echo with RV enlargemnt and pericardial effusion. follow up with cardio outpatient. given 7 days of lasix and cefdinir. O2 bedside Condition at Discharge: Good Final Diagnosis/Problems List Acute metabolic encephalopathy secondary to hypoglycemia Morbid obesity Hypertension Asymptomatic bradycardia Neurogenic bladder secondary to type 2 diabetes acute? on chornic hypoxic RF acute diastolic heart failure HFpEF pericardial effusion, no tamponade phys likely OHS/WILMER non hemorrhagic infectious cystitis Discharge Disposition: Home Discharge Instruct/Medications Diet: Consistent carbohydrate Activity: No Restrictions, As Tolerated Follow Up/Referral: follow up with pcp within 7 days cardio pulm for sleep study Medications: script to pharmacy Discharge Statement: "Patient was advised to return to the ER or call 911 if any headaches, dizziness, shortness of breath, chest pain, abdominal pain, bleeding, fevers, or worsening of medical condition. Patient was counseled about treatment plan, medications, possible side effects, patientverbalized understanding. All questions were answered to the best of my ability. This discharge took greater then 30 minutes in planning, reviewing documentation, counseling the patient, and discussing with other team members." ASSESSMENT ASSESSMENT Assessment hypoglycemia Date of Service: Jun 05, 2024 Billing Provider: BO GOLD MD Common Visit Codes: [id number]/[id number] DISCH DAY >30min BO GOLD MD Jun 05, 2024 10:50
[2024-06-05 12:36] VITALS: BP 136/56; PULSE 77; RESP 17; TEMP 97.6; O2SAT 96
== END 2024-06-05 15:28 | disposition home or self-care (01) | DRG 637 ==
LOC: EDBD 09:08 → EDUNIT# 09:08 → ER 09:08 → OVERFLOW 14:22 → WEST WING 17:16
PROVIDERS: ADMIT Student in an Organized Health Care Education/Training Program; ATTEND Student in an Organized Health Care Education/Training Program
DX: E11.649 Type 2 diabetes mellitus with hypoglycemia without coma (principal); G93.41 Metabolic encephalopathy; J96.21 Acute and chronic respiratory failure with hypoxia; I50.31 Acute diastolic (congestive) heart failure; Z68.43 Body mass index [BMI] 50.0-59.9, adult; I31.39 Other pericardial effusion (noninflammatory); E66.2 Morbid (severe) obesity with alveolar hypoventilation; N30.90 Cystitis, unspecified without hematuria; I16.0 Hypertensive urgency; I11.0 Hypertensive heart disease with heart failure; E11.49 Type 2 diabetes mellitus with other diabetic neurological complication; N31.9 Neuromuscular dysfunction of bladder, unspecified; Z96.653 Presence of artificial knee joint, bilateral; Z90.710 Acquired absence of both cervix and uterus; Z79.899 Other long term (current) drug therapy
CPT/HCPCS: 36415; 36600; 71045; 80048; 80053; 80061; 80307; 81001; 82306; 82607; 82805; 82962; 83036; 83735; 84100; 84443; 84484; 85025; 87086; 87088; 87186; 87426; 87804; 93005; 93306; 93970; 94618; 96372; 97110; 97116; 97163; 97530; 99291; 99292; G0378; J1815